=== PATIENT | female | born 1955 | race Hispanic/Latino ===

== ENCOUNTER 2020-08-16 16:31 | Emergency (ER) | payer BC ==
[2020-08-16 17:52] LABS: #Basophils 0.1 10x3/uL (0.0-0.2); #Eosinphils 0.3 10x3/uL (0.0-0.5); #Monocytes 0.7 10x3/uL (0.0-1.1); #Neutrophils 4.5 10x3/uL (1.5-8.4); %Basophils 0.7 % (0.0-2.0); %Eosinophils 3.8 % (0.0-6.0); %Lymphocytes 17.7 % (18.0-47.0); %Monocytes 9.7 % (0.0-10.0); %Neutrophils 64.6 % (40.0-75.0); ALT (SGPT) 7 U/L (8-55); AST (SGOT) 24 U/L (5-34); Albumin 3.1 g/dL (3.4-4.8); Alkaline Phosphatase 120 U/L (40-110); Anion Gap 15 mmol/L (10-20); BUN (Urea Nitrogen) 32 mg/dL (9.8-20.1); Bilirubin, Total 0.3 mg/dL (0.2-1.2); Calc. Creatinine Clearance 0 mL/min (70-130); Carbon Dioxide 26 mmol/L (23-31); Chloride 94 mmol/L (98-107); Globulin 3.4 g/dL (2.4-3.5); Glucose 203 mg/dL (80-115); Hemoglobin 9.7 g/dL (12.0-15.5); Mean Corpuscular HGB CONC 32.8 g/dL (32.0-36.0); Mean Corpuscular Hemoglobin 29.8 pg (27.0-33.0); Mean Corpuscular Volume 91.1 fl (81.6-98.3); Mean Platelet Volume 9.9 fl (7.4-10.4); Platelet Count 308 10x3/uL (150-450); Potassium 5.2 mmol/L (3.5-5.1); Protein, Total 6.5 g/dL (5.8-8.1); RBC Distribution Width 14.8 % (11.5-14.5); Red Blood Cell (RBC) Count 3.25 10x6/uL (3.90-5.03); Sodium 130 mmol/L (136-145); White Blood Cell (WBC) Count 6.9 10x3/uL (3.5-10.5)
[2020-08-16 20:02] LABS: Hep B Surf Ag Non-Reactive S/CO (NonReactive)
[2020-08-16 20:17] LABS: HBSAg Index 0.19 S/CO (0-0.99)
[2020-08-17 09:07] LABS: HBSAB Concentration Less than 8.00 mIU/mL; Hep B Core Total Ab Non-Reactive (NonReactive); Hep B Core Total Index 0.21 S/CO (0-0.79); Hep B Surf AB Non-Reactive (NonReactive); Hep C IgG Ab Non-Reactive (NonReactive); Hep C Index 0.11 S/CO (0-0.79)
== END 2020-08-17 00:14 | disposition home or self-care (01) ==
LOC: CSHERS 16:31
DX: I13.2 Hypertensive heart and chronic kidney disease with heart failure and with stage 5 chronic kidney disease, or end stage renal disease (principal); I50.9 Heart failure, unspecified; N18.6 End stage renal disease; E87.5 Hyperkalemia; D64.9 Anemia, unspecified; Z99.2 Dependence on renal dialysis; Z79.4 Long term (current) use of insulin; Z79.899 Other long term (current) drug therapy
CPT/HCPCS: 36415; 71045; 80053; 85025; 86704; 86706; 86803; 87340; 90935; 93005; G0257